=== PATIENT | male | born 1940 | race Caucasian/White ===

== ENCOUNTER 2018-09-27 23:56 | Inpatient (IN) | payer MEDICARE, OTHER ==
[2018-09-28] MEDS ORDERED: Norepinephrine 8 MG in Dextrose 5% in Water 242 ML IVPB PRN ×2 (04:05→06:33)
[2018-09-28 05:10] LABS: Lactic Acid 0.7 mmol/L (0.5-2.2)
[2018-09-28] MEDS ORDERED: Ondansetron PF 4 MG/2 ML Vial IVP PRN (05:27)
[2018-09-28] MEDS ORDERED: Acetaminophen 325 MG TAB PO PRN (05:27)
[2018-09-28] MEDS ORDERED: Ondansetron ODT 4 MG TAB SL PRN (05:27)
[2018-09-28 05:36] VITALS: BMI 34.5
[2018-09-28] MEDS ORDERED: Senokot S 8.6-50 MG TAB PO PRN (06:25)
[2018-09-28] MEDS ORDERED: Vancomycin HCl 1 GM in Sodium Chloride 0.9% 250 ML 250 ML IVPB SCH (06:25)
[2018-09-28] MEDS ORDERED: Guaifenesin DM 100-10/5 ML UDCUP PO PRN (06:25)
[2018-09-28] MEDS ORDERED: Calcium Carbonate 500 MG ChewTAB PO PRN (06:25)
[2018-09-28] MEDS ORDERED: Sodium Chloride 0.9% 1,000 ML IV SCH (06:25)
[2018-09-28] MEDS ORDERED: Norepinephrine 8 MG/0.9% NS 250 ML IVPB SCH (06:25)
[2018-09-28] MEDS ORDERED: Bisacodyl 10 MG SUPP PR PRN (06:25)
[2018-09-28] MEDS ORDERED: HOLD VANCOMYCIN FOR LEVEL >20 FS SCH (06:45)
[2018-09-28] MEDS ORDERED: Vancomycin HCl 1.25 GM in Sodium Chloride 0.9% 250 ML 250 ML IVPB SCH (06:45)
[2018-09-28] MEDS ORDERED: Vancomycin HCl 1 GM in Premix Bag 1 BAG IVPB SCH (06:45)
[2018-09-28] MEDS ORDERED: Vancomycin HCl 1.5 GM in Sodium Chloride 0.9% 250 ML 300 ML IVPB SCH (06:45)
[2018-09-28] MEDS ORDERED: Vancomycin HCl 750 MG in Sodium Chloride 0.9% 250 ML 250 ML IVPB SCH (06:45)
--- NOTE | 2018-09-28 07:07 | HP ---
REASON FOR ADMISSION: Septic shock, right leg cellulitis. HISTORY OF PRESENTING ILLNESS: Please note majority of this history is obtained by talking to the patient's daughter who is here at bedside as the patient is lethargic. He apparently developed fever of 102 and right leg redness. All of this started from yesterday. He has chronic wound at the base of the amputation site of right great toe and second toe. This has been present for the last 6 months or so and is not healing well. The leg area started to become red. He was not feeling good, hence went to [facility], from where he was transferred here. The patient had hemodialysis yesterday for a 4-hour session. He did not have any hypotensive episode during the dialysis. On arrival here, the patient had systolic blood pressures in the 80s. He had nearly 2 L of boluses given at [facility], another half a liter of bolus was given here and the patient was started on norepinephrine drip. Currently has no complaints of chest pain, palpitations, PND, or orthopnea. He is very lethargic, but awakens and responds well to verbal questions. PAST MEDICAL AND SURGICAL HISTORY: History of CABG with four-vessel disease, paroxysmal atrial fibrillation, diabetes mellitus type 2, coronary artery disease, end-stage renal disease, on hemodialysis on Sunday, Sunday, Sunday, hernia repair, right medial foot chronic ulcer, right first and second toe amputations. CURRENT MEDICATIONS: The patient is on; 1. Atorvastatin 40 mg p.o. daily. 2. Gabapentin 200 mg p.o. three times daily. 3. Isosorbide mononitrate 60 mg p.o. q.a.m. 4. Omeprazole 20 mg p.o. q.a.m. 5. Vitamin D3 1000 units p.o. daily. 6. Bumetanide 1 mg p.o. daily. 7. Sodium bicarbonate 650 mg p.o. daily. 8. Coumadin 5 mg p.o. daily. 9. Cardizem CD 120 mg p.o. daily. 10. Sertraline 100 mg p.o. daily. ALLERGIES: TO CLINDAMYCIN AND PENICILLIN. PERSONAL HISTORY: Does not abuse alcohol or drugs. No history of smoking. FAMILY HISTORY: Mother in her 70s. She had a clot in her brain and it is unclear if it is a stroke. Father of massive MS in his 60s. CODE STATUS: Full. 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 Marisela Olvera. REVIEW OF SYSTEMS: CONSTITUTIONAL: Negative for weight loss or gain, ability to conduct usual activities. SKIN: Negative for rash, itching. EYES: Negative for double vision, pain. ENT/MOUTH: Negative for nose bleeding, neck stiffness, pain, tenderness. CARDIOVASCULAR: Negative for palpitations, dyspnea on exertion, orthopnea. RESPIRATORY: Negative for shortness of breath, wheezing, cough, hemoptysis, fever or night sweats. GASTROINTESTINAL: Negative for poor appetite, abdominal pain, heartburn, nausea , vomiting, constipation, or diarrhea. GENITOURINARY: Negative for urgency, frequency, dysuria, nocturia. MUSCULOSKELETAL: Negative for pain, swelling. NEUROLOGIC/PSYCHIATRIC: Negative for anxiety, depression. ALLERGY/IMMUNOLOGIC: Negative for skin rash, bleeding tendency. PHYSICAL EXAMINATION: GENERAL: The patient is a 77-year-old male, who is currently not in any acute distress. VITAL SIGNS: Blood pressure currently 110/70 on norepinephrine drip, pulse 100 per minute, respiratory rate 18 per minute, temperature 99.8 degrees Fahrenheit, saturating 96% on room air. NECK: Supple. No elevated JVD. HEENT: Eyes; extraocular muscles intact, pupils reacting to light. Oral cavity , mucous membranes are dry. No exudates or congestion. CARDIOVASCULAR: S1, S2 heard. Tachycardic. No murmur. RESPIRATORY: Air entry 1+ bilateral. No rales or rhonchi. ABDOMEN: Soft. Bowel sounds heard. No tenderness, rigidity, or guarding. EXTREMITIES: Right leg, there is circumferential erythema and edema. The patient also has a dressing placed on the stump of right 1st and 2nd toe amputation site. There is edema of forefoot as well with erythema. Left lower extremity has no calf tenderness. Peripheral pulses are 1+ bilateral. CENTRAL NERVOUS SYSTEM: The patient is very lethargic, but no focal signs are noted. The patient moves all extremities. He has severe peripheral neuropathy with increased paresthesias in both lower extremities. PSYCHIATRIC: No obvious hallucinations or delusions. LABORATORY DATA: White count of 8, H and H 10 and 32, platelet count 139 with 81% neutrophils, MCV is 91, serum bicarb 33, BUN 21, creatinine 3.7, serum glucose 127. Liver enzymes within normal limits. Albumin is 4.0. Influenza A and B antigens are negative. Chest x-ray done shows cardiomegaly with pulmonary vascular congestion. CLINICAL IMPRESSION AND PLAN: The patient will be admitted to ICU for septic shock with right leg cellulitis. He also has chronic ulcer/wound at the amputation site of the 1st and 2nd toes on the right toe, likely the source of his current cellulitis. He is allergic to penicillin and clindamycin. The patient will be placed on vancomycin, Levaquin, and cefepime. He is currently on norepinephrine drip, but his systolic blood pressure has improved to 116 at present. If this holds up consistently for another 30 minutes, we can start down titrating Levophed. Blood cultures have been obtained in the ER. We will continue Lipitor, Coumadin as before along with Protonix. We will consult Dr. Mera for Pulmonology, Dr. Fischer for Nephrology, and Dr. Vasquez for Infectious Disease. Job ID: [id number] MTDD
[2018-09-28 07:22] LABS: #Eosinphils 0.1 thou/uL (0.0-0.7); #Lymphocytes 0.8 thou/uL (1.20-3.40); #Monocytes 0.6 thou/uL (0.11-0.59); #Neutrophils 5.6 thou/uL (1.40-6.50); %Basophils 0.6 % (0.0-1.0); %Eosinophils 1.6 % (0.0-10.0); %Lymphocytes 10.7 % (21.0-51.0); Hemoglobin 9.7 g/dL (14.0-18.0); Mean Corpuscular HGB CONC 31.2 g/dL (32.0-36.0); Mean Corpuscular Volume 96.2 fL (78.0-98.0); Mean Platelet Volume 8.6 fL (7.4-10.4); Platelet Count 128 thou/uL (130-400); RBC Distribution Width 17.8 % (11.5-14.5); Red Blood Cell (RBC) Count 3.22 mill/uL (4.70-6.10); White Blood Cell (WBC) Count 7.1 thou/uL (4.8-10.8)
[2018-09-28 07:30] LABS: INR-International Normal Ratio 1.9; Prothrombin Time 21.3 SEC (12.0-14.7)
[2018-09-28 07:40] LABS: ALT (SGPT) 9 U/L (8-55); AST (SGOT) 12 U/L (5-34); Albumin 3.6 g/dL (3.4-4.8); Alkaline Phosphatase 94 U/L (40-150); Anion Gap 17 mmol/L (10-20); BUN (Urea Nitrogen) 27 mg/dL (8.4-25.7); Calc. Creatinine Clearance 22 mL/min (70-130); Calcium 8.9 mg/dL (7.8-10.44); Carbon Dioxide 30 mmol/L (23-31); Chloride 95 mmol/L (98-107); Estimated GFR-MDRD 13; Globulin 3.1 g/dL (2.4-3.5); Glucose 107 mg/dL (83-110); Potassium 3.8 mmol/L (3.5-5.1); Protein, Total 6.7 g/dL (5.8-8.1); Sodium 138 mmol/L (136-145)
[2018-09-28] MEDS: Heparin 5,000 UNITS/ML VIAL SC SCH ×2 (08:50→20:20)
[2018-09-28] MEDS: Atorvastatin Calcium 40 MG TAB PO SCH (08:51)
[2018-09-28] MEDS ORDERED: Sodium Bicarbonate Tab 325 MG TAB PO SCH (09:00)
[2018-09-28] MEDS ORDERED: Warfarin Sodium 5 MG TAB PO SCH (09:00)
--- NOTE | 2018-09-28 09:12 | CON ---
DATE OF CONSULTATION: HISTORY OF PRESENT ILLNESS: A 77-year-old obese gentleman from [place], visiting his son here in [place], presented with right lower extremity swelling, pain, and fever. The daughter is in the room. She states that he has had issues with the right leg. He has some dressings. He is a former smoker of 2 packs a day, quit smoking in 90s. Denies history of COPD or asthma. PAST MEDICAL HISTORY: Coronary artery disease; cardiac arrhythmias; atrial fibrillation; end-stage renal disease, on dialysis; hypertension. PAST SURGICAL HISTORY: Including multiple stents, bypass, 2 hernia surgeries, toe amputation, access, bilateral leg surgery. MEDICATIONS: 1. List of medicine is summarized by the patient includes. 2. Coumadin 5. 3. Zoloft 100. 4. Omeprazole 40. 5. Imdur 60. 6. Gabapentin 100 three times a day. 7. Cardizem 120. 8. Bumetanide 1. 9. Atorvastatin 40. 10. He is now on vancomycin, Coumadin, Levaquin adjusted for his renal failure. PHYSICAL EXAMINATION: GENERAL: Awake, alert, responsive. He is off Levophed. VITAL SIGNS: , blood pressure 92/51, pulse 64, respiratory rate 18, . EXTREMITIES: His right leg, there is cellulitis involving his distal leg. He has previous amputation of his toes in his right foot, which looks deformed, distorted, appears to be all chronic. Left leg is unremarkable. CHEST: No wheezing or crackles. CARDIAC: Normal S1 and S2 ABDOMEN: No masses. LABORATORY DATA: White count 7000, H and H 9 and 31, platelet count 128. Creatinine is 4.3. X-ray shows small pleural effusion. Albumin is normal. IMPRESSION: 1. Presumed sepsis. 2. Hypertension. 3. Renal failure, coronary artery bypass grafting, obesity, former smoker. Pulmonary rodriguez, once he is off the Levophed, he can probably be transferred out of the ICU. Await input from Nephrology. May require dialysis. Aggressive PT, supportive care. This is a consultation note, 70 minutes, 50% direct patient care. Job ID: [id number]
--- NOTE | 2018-09-28 11:03 | ULT ---
US Renal Bilateral STANDARD HISTORY: Renal failure, chronic Findings Real-time imaging of the right and left kidneys were performed. The right kidney measures 10.9 cm, t he left kidney 11.4 cm in size. There is a 2.1 cm midpole right renal cyst present. There is no obstruction of either kidney. There is mild cortical thinning of both kidneys. The bladder region claire ears unremarkable. IMPRESSION: 2.1 cm midpole right renal cyst with thin internal septation. No evidence of obstruction of either kidney.
[2018-09-28] MEDS ORDERED: Dextrose 50% Abboject 50 ML SYRINGE IVP PRN (11:19)
[2018-09-28] MEDS ORDERED: Dextrose 5% in Water 1,000 ML IV PRN (11:19)
[2018-09-28] MEDS ORDERED: Insulin Regular 300 UNITS/3 ML VIAL SC PRN (11:19)
--- NOTE | 2018-09-28 12:05 | RAD ---
CHEST 1 VIEW: Date: 09/28/18 HISTORY: Status post internal jugular line placement. COMPARISON: 09/27/18 at 2145 hours. FINDINGS: Interval placement of right-sided internal jugular central venous catheter with distal tip in the pre sumed region of the right atrium. No pneumothorax. Otherwise, no change. IMPRESSION: Right-sided vascular catheter placement as above. No pneumothorax. POS: OFF
--- NOTE | 2018-09-28 13:31 | CON ---
DATE OF CONSULTATION: 09/28/2018 HISTORY OF PRESENT ILLNESS: Mr. Olvera is a 77-year-old white male with ESRD, coronary artery disease, and admitted for a right toe infection/right leg cellulitis. He has been having fever and chills in the last few days. He was also noted to be hypotensive. He was placed in the ICU, given volume repletion as well as pressor support. This morning, he is much improved. Blood pressure is now within normal. The patient is now mentating better. He is currently on IV antibiotics. We are consulted for his maintenance hemodialysis. He has been dialyzed Sunday, Sunday, and Sunday. His next dialysis is Sunday. I have decided to discontinue his IV fluid. REVIEW OF SYSTEMS: No chest pain. Positive for fever. Positive for right leg erythema/pain. No nausea. No vomiting. Appetite and energy level are fair. Status post confusion. No syncopal episode. No productive cough. No dysuria. No urinary frequency. No hematochezia. No melena. No hematemesis. MEDICATIONS: 1. Atorvastatin 40 mg tablet nightly. 2. Normal saline 100 mL/h. 3. Heparin 5000 units subcu b.i.d., status post Levophed. 4. Protonix 40 mg tablet once a day, status post vancomycin. 5. Sodium bicarbonate 650 mg daily. 6. Coumadin as directed. PAST MEDICAL HISTORY: Includes type 2 diabetes mellitus, ESRD from diabetic nephropathy, hyperlipidemia, recently status post right toe infection/leg cellulitis, history of coronary artery disease, and history of paroxysmal atrial fibrillation. PAST SURGICAL HISTORY: Includes status post cardiac cath, status post CABG, status post AV fistula placement, status post hernia repair, and status post right toe amputation. ALLERGIES: CLINDAMYCIN AND PENICILLIN. TRAUMA: None. IMMUNIZATION: Up-to-date. HOSPITALIZATIONS: Please see past medical history. SOCIAL HISTORY: The patient is , lives in [place], [place]. He is visiting in [place]. He has 7 children. 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 Education, 11th grade. Currently not smoking-quit back in 1995. Alcohol, none. Status post blood transfusion. FAMILY HISTORY: No family history of ESRD. PHYSICAL EXAMINATION: VITAL SIGNS: Blood pressure 130/73, heart rate 105, respiratory rate 16, temperature 98.6, and pulse ox 93%. GENERAL: Awake, alert, comfortable, obese, not in distress. SKIN: Adequate turgor. HEENT: He has slightly pale conjunctivae. Anicteric sclerae. NECK: No neck mass. No carotid bruits. No JVD. CHEST: No deformities. LUNGS: Clear breath sounds. No wheezing. No crackles. HEART: Normal sinus rhythm. No murmur. No gallops. No rubs. ABDOMEN: Globular, soft, and nontender. No masses. EXTREMITIES: Trace edema. He does have right foot erythema as well as right leg erythema. NEUROLOGIC: Awake and oriented to 3 spheres. Moving all extremities. No tremors or asterixis. No ataxia. LABORATORY DATA: Laboratories of September 28, 2018; white count 7.1 and hemoglobin 9.7. Sodium 138, potassium 3.8, chloride 95, carbon dioxide 30, BUN 27, creatinine 4.33, glucose 107, AST 12, ALT 9, and cortisol 13.2. ASSESSMENT AND PLAN: 1. Right leg cellulitis, currently on IV antibiotics. Continue supportive care. 2. Hypertension, resolved with volume repletion and pressor support. Currently off pressor supports. My bias, since the patient's blood pressure is now stable and he is mentating well, he is to discontinue the IV fluid. 3. End-stage renal disease, stable. He is on a Sunday, Sunday, and Sunday regular dialysis. If he is still in the hospital on Sunday, we will dialyze him. After his right cellulitis resolved, he will be flying back to [place], [place]. Overall, agree with current management. Job ID: [id number]
[2018-09-28] MEDS: Warfarin Sodium 5 MG TAB PO SCH (17:12)
--- NOTE | 2018-09-28 17:16 | PDOC.PN ---
- Subjective Encounter Start Date: 09/28/18 Encounter Start Time: 11:00 Subjective: pt up in bed no complains - Objective Resuscitation Status - Order Detail: 09/28/18 06:14 Resuscitation Status Routine Resuscitation Status: FULL: Full Resuscitation Vital Signs & Weight: Vital Signs (12 hours) Temp Pulse Resp BP Pulse Ox 09/28/18 16:49 98.7 F 109 H 20 131/58 L 96 09/28/18 12:00 93 L 09/28/18 11:30 98.6 F 105 H 16 130/73 93 L 09/28/18 08:00 99.4 F 98 09/28/18 06:00 98.7 F 09/28/18 05:40 96 09/28/18 05:23 98.7 F Weight Admit Weight 240 lb 15.444 oz Weight 240 lb 15.444 oz Most Recent Monitor Data Heart Rate from ECG 108 NIBP 104/63 NIBP BP-Mean 76 Respiration from ECG 24 SpO2 100 I&O: 09/27/18 09/28/18 09/29/18 06:59 06:59 06:59 Intake Total 613 Output Total 0 0 Balance 0 613 Result Diagrams: 09/28/18 06:59 09/28/18 06:25 Additional Labs: Accuchecks 09/28/18 09/28/18 16:16 11:57 POC Glucose 161 H 185 H Phys Exam - Physical Examination Neck: no nodes, no JVD, supple, full ROM Respiratory: no wheezing, no rales, no rhonchi, wheezing present, clear to auscultation bilateral Cardiovascular: RRR, no significant murmur, no rub, gallop, irregular Gastrointestinal: soft, non-tender, no distention, positive bowel sounds Dx/Plan (1) Sepsis Code(s): A41.9 - SEPSIS, UNSPECIFIED ORGANISM Status: Acute (2) Cellulitis Code(s): L03.90 - CELLULITIS, UNSPECIFIED Status: Acute (3) Osteomyelitis Code(s): M86.9 - OSTEOMYELITIS, UNSPECIFIED Status: Acute (4) Diabetes Code(s): E11.9 - TYPE 2 DIABETES MELLITUS WITHOUT COMPLICATIONS Status: Acute - Plan pt off pressors, will continue abx for now. -: pt's daughter states in apr had amputation of 1 and 2nd toe of right -: foot. wound care to seept -: possible MRi or right foot * . Review of Systems - Review of Systems Respiratory: negative: Cough, Dry, Shortness of Breath, Hemoptysis, SOB with Excertion, Pleuritic Pain, Sputum, Wheezing Cardiovascular: negative: chest pain, palpitations, orthopnea, paroxysmal nocturnal dyspnea, edema, light headedness, other Gastrointestinal: negative: Nausea, Vomiting, Abdominal Pain, Diarrhea, Constipation, Melena, Hematochezia, Other - Medications/Allergies Allergies/Adverse Reactions: Allergies Allergy/AdvReac Type Severity Reaction Status Date / Time clindamycin Allergy Verified 09/28/18 05:31 Penicillins Allergy Verified 09/28/18 05:31 Medications: Current Medications Acetaminophen (Tylenol) 650 mg PO Q4H PRN PRN Reason: Headache/Fever/Mild Pain (1-3) Atorvastatin Calcium (Lipitor) 40 mg PO DAILY REPLACED BY [facility] Last Admin: 09/28/18 08:51 Dose: 40 mg Bisacodyl (Dulcolax) 10 mg MO DAILYPRN PRN PRN Reason: Constipation Calcium Carbonate (Tums) 1,000 mg PO Q4H PRN PRN Reason: Heartburn or Indigestion Dextrose/Water (Dextrose 50%) 25 gm IVP PRN PRN PRN Reason: HYPOGLYCEMIA PROTOCOL Glucagon (Glucagon) 1 mg IM PRN PRN PRN Reason: HYPOGLYCEMIA PROTOCOL Guaifenesin/Dextromethorphan (Robitussin Dm) 15 ml PO Q4H PRN PRN Reason: Cough Heparin Sodium (Porcine) (Heparin) 5,000 units SC BID REPLACED BY [facility] Last Admin: 09/28/18 08:50 Dose: 5,000 units Levofloxacin 250 mg/ Device 50 mls @ 100 mls/hr IVPB Q24HR REPLACED BY [facility] Last Admin: 09/28/18 07:44 Dose: 50 mls Norepinephrine Bitartrate 8 mg (/ Dextrose/Water) 250 mls @ 0 mls/hr IVPB INF PRN; Protocol PRN Reason: TO MAINTAIN MAP > 65 Vancomycin HCl 1.5 gm/ Sodium (Chloride) 300 mls @ 200 mls/hr IVPB WILLCALL REPLACED BY [facility] Vancomycin HCl 1.25 gm/ Sodium (Chloride) 250 mls @ 166.667 mls/hr IVPB WILLCALL REPLACED BY [facility] Vancomycin HCl 1 gm/ Device 200 mls @ 200 mls/hr IVPB WILLCALL REPLACED BY [facility] Vancomycin HCl 750 mg/ Sodium (Chloride) 250 mls @ 250 mls/hr IVPB WILLCALL REPLACED BY [facility] Dextrose/Water (D5w) 1,000 mls @ 0 mls/hr IV INF PRN PRN Reason: HYPOGLYCEMIA PROTOCOL Insulin Human Regular (Humulin R) 0 units SC .MILD SLIDING PRN; Protocol PRN Reason: MILD SLIDING SCALE Hold Vancomycin For (Level >20) 0 each FS .AT DIALYSIS REPLACED BY [facility] Pantoprazole Sodium (Protonix) 40 mg PO DAILY REPLACED BY [facility] Last Admin: 09/28/18 08:51 Dose: 40 mg Senna/Docusate Sodium (Senokot S) 2 tab PO BID PRN PRN Reason: Constipation Sertraline HCl (Zoloft) 100 mg PO DAILY REPLACED BY [facility] Last Admin: 09/28/18 08:51 Dose: 100 mg Warfarin Sodium (Coumadin) 5 mg PO 1700 REPLACED BY [facility] Last Admin: 09/28/18 17:12 Dose: 5 mg
[2018-09-28] MEDS: Acetaminophen 325 MG TAB PO PRN (20:19)
[2018-09-28] MEDS ORDERED: Prevnar 13-Val Conj/PF 0.5 ML SYRINGE IM ONE (21:00)
[2018-09-29 06:22] LABS: #Eosinphils 0.1 thou/uL (0.0-0.7); #Lymphocytes 0.9 thou/uL (1.20-3.40); #Monocytes 0.4 thou/uL (0.11-0.59); %Basophils 0.2 % (0.0-1.0); %Eosinophils 2.4 % (0.0-10.0); %Lymphocytes 15.7 % (21.0-51.0); %Monocytes 8.2 % (0.0-10.0); %Neutrophils 73.5 % (42.0-75.0); Hemoglobin 8.9 g/dL (14.0-18.0); Mean Corpuscular Hemoglobin 30.4 pg (27.0-31.0); Mean Corpuscular Volume 95.1 fL (78.0-98.0); Mean Platelet Volume 8.6 fL (7.4-10.4); Platelet Count 113 thou/uL (130-400); RBC Distribution Width 17.3 % (11.5-14.5); Red Blood Cell (RBC) Count 2.94 mill/uL (4.70-6.10); White Blood Cell (WBC) Count 5.4 thou/uL (4.8-10.8)
[2018-09-29 06:37] LABS: Anion Gap 17 mmol/L (10-20); BUN (Urea Nitrogen) 42 mg/dL (8.4-25.7); Calc. Creatinine Clearance 17 mL/min (70-130); Calcium 9.4 mg/dL (7.8-10.44); Carbon Dioxide 28 mmol/L (23-31); Chloride 94 mmol/L (98-107); Estimated GFR-MDRD 10; Glucose 129 mg/dL (83-110); Potassium 3.8 mmol/L (3.5-5.1); Sodium 135 mmol/L (136-145)
[2018-09-29] MEDS: Atorvastatin Calcium 40 MG TAB PO SCH (08:12)
[2018-09-29] MEDS: Heparin 5,000 UNITS/ML VIAL SC SCH ×2 (08:14→20:14)
[2018-09-29 10:34] LABS: HBSAB Concentration 1.96 mIU/mL; HBSAg Index 0.23 S/CO (0-0.99); Hep B Core Total Ab Non-Reactive (NonReactive); Hep B Core Total Index 0.07 S/CO (0-0.79); Hep B Surf AB Non-Reactive (NonReactive); Hep B Surf Ag Non-Reactive S/CO (NonReactive); Hep C IgG Ab Non-Reactive (NonReactive); Hep C Index 0.12 S/CO (0-0.79)
[2018-09-29] MEDS ORDERED: Epoetin (ESRD) 20,000 UNITS/ML SC SCH (11:00)
--- NOTE | 2018-09-29 11:09 | PRG ---
DATE OF SERVICE: 09/29/2018 SUBJECTIVE: This morning, is in no distress. OBJECTIVE: VITAL SIGNS: Saturations are 95% on room air, pulse 105, temperature 98, and blood pressure . CHEST: Decreased breath sounds. No wheezing. CARDIAC: Normal S1, S2. No gallops. ABDOMEN: Soft, massive. LABORATORY DATA: Creatinine 5.73. White count 5000, H and H are 8 and 27. IMPRESSION: 1. Chronic renal failure. 2. Diabetes. 3. Cellulitis. 4. Infected toe. PLAN: Pulmonary rodriguez, continue antibiotics as per Infectious Disease. Pulmonary will follow at a distance. Call, if needed. Job ID: [id number]
[2018-09-29] MEDS ORDERED: EPOETIN ALFA-EPBX (ESRD) 4,000 UNIT/ML VIAL SC SCH (11:15)
--- NOTE | 2018-09-29 11:23 | PRG ---
DATE OF SERVICE: 09/29/2018 SUBJECTIVE: Mr. Olvera is a 77-year-old white male with ESRD from presumed diabetic nephropathy. He was admitted due to infected right foot/right leg. He has a cellulitis. He was empirically given with volume repletion as well as IV antibiotics due to the low blood pressure. This morning, he voices no new complaints. He denies any chest pain or shortness of breath. I have discontinued his IV fluids yesterday. OBJECTIVE: VITAL SIGNS: Blood pressure 119/67, heart rate 105, respiratory rate 20, temperature 98, and pulse ox 95%. GENERAL: Noted to be awake, supine, comfortable, obese, not in distress. SKIN: Adequate turgor. HEENT: Slightly pale conjunctivae. Anicteric sclerae. NECK: No neck mass. No carotid bruits. No JVD. CHEST: No deformities. LUNGS: Clear breath sounds. No wheezing. No crackles. HEART: Normal sinus rhythm. No murmur. No gallops. No rubs. ABDOMEN: Globular, soft, nontender. No masses. EXTREMITIES: No edema. No deformities. MEDICATIONS: Medications of September 29, 2018, were reviewed. LABORATORY DATA: Laboratories of September 29, 2018, white count 5.4, hemoglobin 8.9. Sodium 135, potassium 3.8, chloride 94, carbon dioxide 28, BUN 42, creatinine 5.73, glucose 129, calcium 9.4. White count is 5.4, hemoglobin 8.9. ASSESSMENT AND PLAN: 1. End-stage renal disease stable. No indication for any emergent hemodialysis. I have scheduled him for dialysis tomorrow. 2. Anemia. Resume Epogen 7500 units subcu q.week. 3. Right leg cellulitis/foot infection-on IV antibiotics, clinically improving. The IV fluid was discontinued yesterday. We will recheck basic metabolic profile, CBC in a.m., if the patient is still here. 4. From a renal point of view, he could be discharged and follow up with his outpatient dialysis in [place], [place]. Job ID: [id number]
[2018-09-29] MEDS ORDERED: Nystatin Powder 15 GM BOT TOP PRN (13:19)
--- NOTE | 2018-09-29 15:59 | MRI ---
Exam: Right foot MRI without IV contrast: HISTORY: Right foot cellulitis, prior amputation, chronic wound Amputation changes noted of the first and second toes at the level of the distal metatarsals. Abnorma l T2 hyperintense T1 hypointense changes of the most distal aspect of the first metatarsal at the amputation site and extending approximately 0.5 cm cranially evidence for osteomyelitis. Medial to th e distal first amputated metatarsal adjacent to the skin wound is an irregular shaped collection measuring 0.5 x 1.3 x 1.2 cm in size probably a small abscess which extends from the open wound to th e distal amputated first metatarsal. Diffuse soft tissue swelling and edema involving the forefoot region somewhat circumferentially. Increased T2 signal in the intrinsic muscles of the foot which can be seen in diabetes. IMPRESSION: Focal area of osteomyelitis involving the distal amputated first metatarsal with a small irregular fl uid collection between the distal metatarsal and the skin wound evidence for small abscess. Amputation of the distal second metatarsal. Diffuse subcutaneous edema and fat stranding. Nonspecific T2 hyperintensity of the intrinsic muscles of the foot.
[2018-09-29] MEDS: Warfarin Sodium 5 MG TAB PO SCH (17:23)
[2018-09-29] MEDS: Acetaminophen 325 MG TAB PO PRN ×2 (19:39→23:38)
--- NOTE | 2018-09-30 04:48 | PDOC.EVN ---
Event Note - Event Note Event Note: Informed by RN that family frustrated due to not having results of MRI. Patient seen, I have provided MRI results as well as a report. MRI indicates focal area of osteomyelitis. Patient awaiting review by Dr. Vasquez. Currently on abx. Patient very appreciate and grateful for care he has been receiving. Daughter insisting no procedures to be done here and she wants to take him back to [place] to continue treatment. I advised I am not able to discharge, as he does require IV abx and awaiting further recommendations by ID and primary team. Family aware would have to sign out AMA if planning to leave tonight. They have opted to stay with plans to go home tomorrow. Patient without any complaints.
[2018-09-30 05:58] LABS: #Eosinphils 0.1 thou/uL (0.0-0.7); #Lymphocytes 0.7 thou/uL (1.20-3.40); #Monocytes 0.3 thou/uL (0.11-0.59); #Neutrophils 3.2 thou/uL (1.40-6.50); %Eosinophils 2.2 % (0.0-10.0); %Lymphocytes 17.2 % (21.0-51.0); %Monocytes 6.5 % (0.0-10.0); Hemoglobin 8.7 g/dL (14.0-18.0); Mean Corpuscular HGB CONC 31.8 g/dL (32.0-36.0); Mean Corpuscular Volume 94.1 fL (78.0-98.0); Mean Platelet Volume 8.5 fL (7.4-10.4); Platelet Count 111 thou/uL (130-400); RBC Distribution Width 17.3 % (11.5-14.5); White Blood Cell (WBC) Count 4.3 thou/uL (4.8-10.8)
[2018-09-30 06:06] LABS: INR-International Normal Ratio 1.5; Prothrombin Time 18.3 SEC (12.0-14.7)
[2018-09-30 06:19] LABS: Anion Gap 16 mmol/L (10-20); BUN (Urea Nitrogen) 55 mg/dL (8.4-25.7); Calc. Creatinine Clearance 14 mL/min (70-130); Calcium 8.8 mg/dL (7.8-10.44); Carbon Dioxide 27 mmol/L (23-31); Chloride 93 mmol/L (98-107); Estimated GFR-MDRD 8; Glucose 136 mg/dL (83-110); Potassium 3.9 mmol/L (3.5-5.1); Sodium 132 mmol/L (136-145)
[2018-09-30] MEDS ORDERED: Clopidogrel Bisulfate 75 MG TAB ONE (07:46)
[2018-09-30 09:01] LABS: Vancomycin, Random 7.8 ug/mL (See Comment)
[2018-09-30] MEDS ORDERED: Vancomycin HCl 1.25 GM in Sodium Chloride 0.9% 250 ML 250 ML IVPB SCH (09:30)
--- NOTE | 2018-09-30 09:59 | PDOC.PN ---
- Subjective Encounter Start Date: 09/29/18 Encounter Start Time: 10:15 Subjective: pt up in bed no complains - Objective Resuscitation Status - Order Detail: 09/28/18 06:14 Resuscitation Status Routine Resuscitation Status: FULL: Full Resuscitation Vital Signs & Weight: Vital Signs (12 hours) Temp Pulse Resp BP Pulse Ox 09/30/18 08:25 98.9 F 105 H 18 115/65 96 09/30/18 04:00 97.9 F 95 18 134/63 100 Weight Admit Weight 240 lb 15.444 oz Weight 240 lb 15.444 oz Most Recent Monitor Data Heart Rate from ECG 108 NIBP 104/63 NIBP BP-Mean 76 Respiration from ECG 24 SpO2 100 I&O: 09/29/18 09/30/18 10/01/18 06:59 06:59 06:59 Intake Total 2233 1320 Output Total 0 Balance 2233 1320 Result Diagrams: 09/30/18 05:40 09/30/18 05:40 Additional Labs: Accuchecks 09/30/18 09/29/18 09/29/18 05:38 19:34 16:46 POC Glucose 141 H 188 H 148 H 09/29/18 11:41 POC Glucose 215 H Phys Exam - Physical Examination Neck: no nodes, no JVD, supple, full ROM Respiratory: no wheezing, no rales, no rhonchi, wheezing present, clear to auscultation bilateral Cardiovascular: RRR, no significant murmur, no rub, gallop, irregular Gastrointestinal: soft, non-tender, no distention, positive bowel sounds right foot has small opening to his medial aspect of his foot and to the lateral part his skin is bruised Dx/Plan (1) Sepsis Code(s): A41.9 - SEPSIS, UNSPECIFIED ORGANISM Status: Acute (2) Cellulitis Code(s): L03.90 - CELLULITIS, UNSPECIFIED Status: Acute (3) Osteomyelitis Code(s): M86.9 - OSTEOMYELITIS, UNSPECIFIED Status: Acute (4) Diabetes Code(s): E11.9 - TYPE 2 DIABETES MELLITUS WITHOUT COMPLICATIONS Status: Acute - Plan plan discussed with family at bedside -: will order a MRI of the foot -: will continue abx for now * . Review of Systems - Review of Systems Respiratory: negative: Cough, Dry, Shortness of Breath, Hemoptysis, SOB with Excertion, Pleuritic Pain, Sputum, Wheezing Gastrointestinal: negative: Nausea, Vomiting, Abdominal Pain, Diarrhea, Constipation, Melena, Hematochezia, Other - Medications/Allergies Allergies/Adverse Reactions: Allergies Allergy/AdvReac Type Severity Reaction Status Date / Time clindamycin Allergy Verified 09/28/18 05:31 Penicillins Allergy Verified 09/28/18 05:31 Medications: Current Medications Acetaminophen (Tylenol) 650 mg PO Q4H PRN PRN Reason: Headache/Fever/Mild Pain (1-3) Last Admin: 09/29/18 23:38 Dose: 650 mg Atorvastatin Calcium (Lipitor) 40 mg PO DAILY [facility] Last Admin: 09/29/18 08:12 Dose: 40 mg Bisacodyl (Dulcolax) 10 mg [place] DAILYPRN PRN PRN Reason: Constipation Calcium Carbonate (Tums) 1,000 mg PO Q4H PRN PRN Reason: Heartburn or Indigestion Dextrose/Water (Dextrose 50%) 25 gm IVP PRN PRN PRN Reason: HYPOGLYCEMIA PROTOCOL Epoetin Richard-epbx (Retacrit) 7,500 unit SC Q7D [facility] Last Admin: 09/29/18 11:42 Dose: 7,500 unit Glucagon (Glucagon) 1 mg IM PRN PRN PRN Reason: HYPOGLYCEMIA PROTOCOL Guaifenesin/Dextromethorphan (Robitussin Dm) 15 ml PO Q4H PRN PRN Reason: Cough Heparin Sodium (Porcine) (Heparin) 5,000 units SC BID [facility] Last Admin: 09/29/18 20:14 Dose: 5,000 units Levofloxacin 250 mg/ Device 50 mls @ 100 mls/hr IVPB Q24HR [facility] Last Admin: 09/29/18 08:12 Dose: 50 mls Norepinephrine Bitartrate 8 mg (/ Dextrose/Water) 250 mls @ 0 mls/hr IVPB INF PRN; Protocol PRN Reason: TO MAINTAIN MAP > 65 Vancomycin HCl 1.5 gm/ Sodium (Chloride) 300 mls @ 200 mls/hr IVPB WILLCALL [facility] Vancomycin HCl 1.25 gm/ Sodium (Chloride) 250 mls @ 166.667 mls/hr IVPB WILLCALL [facility] Vancomycin HCl 1 gm/ Device 200 mls @ 200 mls/hr IVPB WILLCALL [facility] Vancomycin HCl 750 mg/ Sodium (Chloride) 250 mls @ 250 mls/hr IVPB WILLCALL [facility] Dextrose/Water (D5w) 1,000 mls @ 0 mls/hr IV INF PRN PRN Reason: HYPOGLYCEMIA PROTOCOL Vancomycin HCl 1.25 gm/ Sodium (Chloride) 250 mls @ 166.667 mls/hr IVPB NOW [facility] Stop: 09/30/18 11:30 Insulin Human Regular (Humulin R) 0 units SC .MILD SLIDING PRN; Protocol PRN Reason: MILD SLIDING SCALE Last Admin: 09/29/18 11:44 Dose: 3 unit Miscellaneous Medication (Pharmacy To Dose) 1 each IVPB PRN PRN PRN Reason: Pharmacy to dose Hold Vancomycin For (Level >20) 0 each FS .AT DIALYSIS [facility] Nystatin (Mycostatin Powder) 1 gm TOP BID PRN PRN Reason: Topical Irritations Last Admin: 09/29/18 15:05 Dose: 1 applic Pantoprazole Sodium (Protonix) 40 mg PO DAILY [facility] Last Admin: 09/29/18 08:12 Dose: 40 mg Senna/Docusate Sodium (Senokot S) 2 tab PO BID PRN PRN Reason: Constipation Sertraline HCl (Zoloft) 100 mg PO DAILY [facility] Last Admin: 09/29/18 08:12 Dose: 100 mg Sodium Chloride (Flush - Normal Saline) 10 ml IVF Q12HR [facility] Last Admin: 09/29/18 20:16 Dose: 10 ml Sodium Chloride (Flush - Normal Saline) 10 ml IVF PRN PRN PRN Reason: Saline Flush Warfarin Sodium (Coumadin) 5 mg PO 1700 [facility] Last Admin: 09/29/18 17:23 Dose: 5 mg
--- NOTE | 2018-09-30 10:00 | PRG ---
DATE OF SERVICE: 09/30/2018 SUBJECTIVE: Mr. Olvera is a 77-year-old white male with ESRD, was admitted for right foot infection. Currently, on IV antibiotics. He is currently undergoing hemodialysis. We are doing a 4-hour dialysis treatment with fluid removal as tolerated. OBJECTIVE: VITAL SIGNS: Blood pressure 115/65, heart rate 105, respiratory rate 18, temperature 98.9, and pulse ox 96%. GENERAL: Awake, alert, comfortable, not in distress. SKIN: Adequate turgor. HEENT: He has slightly pale conjunctivae. Anicteric sclerae. No neck mass. No carotid bruits. No JVD. CHEST: No deformities. LUNGS: Clear breath sounds. No wheezing. No crackles. HEART: Normal sinus rhythm. No murmur. No gallops. No rubs. ABDOMEN: Globular, soft, nontender. No masses. EXTREMITIES: No edema. Positive for right leg erythema. MEDICATIONS: Medication of September 30, 2018, was reviewed. LABORATORY DATA: Laboratories of September 30, 2018, white count 4.3, hemoglobin 8.7. Sodium 132, potassium 3.9, chloride 93, carbon dioxide 27, BUN 55, creatinine 6.66, glucose 136, calcium 8.8. Hemoglobin 8.7. ASSESSMENT AND PLAN: 1. End-stage renal disease, stable. We will continue current Sunday, Sunday, and Sunday hemodialysis regimen. Fluid removal as tolerated. 2. Right leg cellulitis, on IV antibiotics. 3. Anemia. Epogen has been initiated with this patient at 7500 units subcu every week. Job ID: [id number]
[2018-09-30] MEDS: Heparin 5,000 UNITS/ML VIAL SC SCH (10:19)
--- NOTE | 2018-09-30 11:50 | CON ---
DATE OF CONSULTATION: 09/28/2018 REASON FOR CONSULTATION: Cellulitis of the right lower extremity. HISTORY OF PRESENT ILLNESS: A 77-year-old patient who has a history of coronary artery disease, type 2 diabetes; end-stage renal disease, on hemodialysis through a left upper extremity AV fistula and prior right first and second toe amputations. The patient on arrival was lethargic and apparently had developed fever and erythema in the right lower extremity. This was following a recent amputation of the right great and second toes. This was carried out at [facility]. The area has progressively displayed healing, although there is still an area of quite shallow wound. He was transferred to [facility] and then over to [facility]. His last hemodialysis was before admission. Initial systolic blood pressure was 80. He was given IV fluids and norepinephrine. Initial values of the vital signs; BP 110/70, on norepinephrine; pulse was 100, respiratory rate was 18, temperature 99.8, O2 saturation 96. His lungs were clear. Heart exam showed tachycardia, but no murmurs. Abdomen was not tender. There is erythema and edema in the right leg and there was a stump of the first and second toe amputation sites with flat shallow wound noted. Currently, Mr. Olvera is feeling better. He denies any headaches. No change in visual symptoms, sore throat, odynophagia, or dysphagia. No cough, sputum production, or chest pain. No abdominal pain. No diarrhea. No genitourinary symptoms. Not much pain in the right foot. PAST MEDICAL HISTORY: Coronary artery disease with prior bypass graft surgery, type 2 diabetes. End-stage renal disease, on hemodialysis, removal of the fistula in the left upper extremity. 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 MEDICATIONS: 1. Atorvastatin. 2. Gabapentin. 3. Omeprazole. 4. Bumex. 5. Coumadin. 6. Cardizem. 7. Zoloft. He is also on levofloxacin and vancomycin ALLERGIES: CLINDAMYCIN AND PENICILLIN. SOCIAL HISTORY: Never smoker. FAMILY HISTORY: CVA and coronary artery disease. PHYSICAL EXAMINATION: VITAL SIGNS: T-max 99.4, blood pressure 110/66, pulse 107, respirations 18, O2 saturation 95. SKIN: Shows the medial right foot with shallow area of elliptical wound with 100% granulation. Mild erythema surrounding the area and moderate tenderness to palpation. There is erythema extending to the distal right leg medial aspect in a circumferential distribution. HEENT: No lymphadenopathy. Ocular movements are conjugate. Oral cavity with numerous missing teeth. Oral mucosa is normal. NECK: Supple. No jugular vein distention or carotid bruits. LUNGS: Clear. HEART: S1 and S2. Regular rate. No S3 or S4. ABDOMEN: Soft. Not distended or tender. No ascites. No bladder distention. EXTREMITIES: Pulses are diminished in lower extremities. I could not feel dorsalis pedis. NEUROLOGICAL: His strength in all lower extremities is preserved. Cognitive function appears to be intact except for some element of hearing impairment. LABORATORY DATA: White cell count 7.1, hemoglobin 9.7, platelets 128, 79% neutrophils. Sodium 138, creatinine 4.33. Other elements in the chemistry panel are normal. No microbiology information at this point in time. Chest x-ray with right-sided vascular catheter. Renal ultrasound, renal cyst, but no hydronephrosis. ASSESSMENT AND PLAN: Type 2 diabetes, coronary artery disease, neuropathy with recent right first and second ray amputations, now what appears to be cellulitis. We will repeat the x-ray to evaluate the sites and may need an MRI. Continue the current antimicrobial therapy. Eventual transition to oral antimicrobial therapy probably with some cephalosporin as long as the imaging studies do not demonstrate progression of the infection. Job ID: [id number] [facility]
[2018-09-30] MEDS: Atorvastatin Calcium 40 MG TAB PO SCH (13:36)
[2018-09-30 14:24] VITALS: BP 127/63; TEMP 98.5
--- NOTE | 2018-10-01 12:29 | DIS ---
DATE OF ADMISSION: 09/28/2018 DATE OF DISCHARGE: 09/30/2018 DISCHARGE DIAGNOSES: As of the following; 1. Sepsis. 2. Cellulitis of the right lower extremity. 3. Osteomyelitis, possible. 4. Diabetes. HOSPITAL COURSE: The patient is a 77-year-old male, who is from out of [facility], who presents to the hospital with complaints of right lower extremity pain and swelling. The patient on arrival was found to be hypotensive requiring an ICU admission and was also in septic shock. He was put initially on Levophed to sustain his blood pressures. The patient has an allergy to penicillin and clindamycin and he was put on vancomycin and Levaquin. The patient improved. His Levophed was titrated down. He was resuscitated appropriately and then was transferred to out of the ICU to the medical floor. The patient and family were very adamant about taking the patient back to [place] since all his care has been always provided in [place]. The patient has known history of peripheral vascular disease to his right and left lower extremity. He has also had a first and second metatarsal amputation. The patient does have a wound on his right foot that has been an issue with healing and keeps reopening. The patient at this time did undergo an MRI of the right lower extremity, which indicated focal area of osteomyelitis involving the distal amputated first metatarsal and small irregular fluid collection between the distal metatarsal and the skin wound. Evidence of small abscess. Amputation of the distal second metatarsal, diffuse subcutaneous edema and fat stranding. This was discussed with the patient's daughter and the patient and also Infectious Disease did come by to see the patient. I did recommend for the patient to stay in the hospital, get incision and drainage to get cultures and at the meantime, continue the antibiotics and taper the antibiotics based on the cultures. However, the family was very adamant to taking the patient home to [place] and provide the care, since all his physicians are in [place], which is also appropriate. I did discuss with the patient and the patient's daughter the risks of taking the patient off the antibiotics, especially since when he came in, he was very ill and was in septic shock. The patient's daughter understands. He did not receive a dose of vancomycin since the patient's daughter wanted to stop the dialysis treatment an hour early due to catching of the flight. Again, this was discussed with the patient's daughter. The risks of not getting appropriate antibiotics and also including . She understood and I also discussed delaying in care for this patient and regarding and also possible amputation with further delay. The patient's daughter understood this and so did the patient. The patient will be discharged and he has a flight today at 5:00 p.m. He has been provided with Levaquin, however, we did not receive a dose of vancomycin. PHYSICAL EXAMINATION: VITAL SIGNS: As of the following; temperature of 98.5, pulse 105, respiratory rate 16, oxygen saturation 100% on room air, and blood pressure 127/63. GENERAL: He is awake, alert, and oriented x3. Does not appear in any distress. CARDIOVASCULAR: S1 and S2 present. No murmurs, rubs, or gallops. ABDOMEN: Soft and nontender. Bowel sounds are present x2. EXTREMITIES: No edema. He will be discharged home and I have advised the patient and the family to take him directly to the emergency department and I have provided the patient with a disc off his MRI and also reports our H and Ps and our consultants H and Ps. MEDICATIONS: As of the following; 1. Atorvastatin 40 mg daily. 2. Bumetanide 1 mg p.o. daily. 3. Vitamin D3 of 1000 units p.o. daily. 4. Cardizem 120 mg p.o. daily. 5. Isosorbide 60 mg daily. 6. Gabapentin 100 mg t.i.d. 7. Omeprazole 40 mg daily. 8. Sertraline 100 mg daily. 9. Sodium bicarbonate 650 mg daily. 10. Warfarin 5 mg daily. 11. Insulin as needed. 12. Enalapril 10 mg daily. Again, the patient will be discharged. This is per family's recommendations. I did discuss the risks and benefits, however, more risks involving loss of the right foot. The patient and family are agreeable to the risks and are wanting to take the patient back to [place]. I spent more than 35 minutes discussing and calling consultants regarding this. Job ID: [id number]
== END 2018-09-30 14:12 | disposition home or self-care (01) | DRG 871 ==
LOC: ERS 23:56 → CCU 09-28 05:25 → T4-B 09-28 11:33
PROVIDERS: ADMIT Internal Medicine; ATTEND Internal Medicine
PROC: 5A1D70Z Performance of Urinary Filtration, Intermittent, Less than 6 Hours Per Day (ICD-10-PCS; principal; 2018-09-30)
DX: A41.9 Sepsis, unspecified organism (principal); N18.6 End stage renal disease; R65.21 Severe sepsis with septic shock; I12.0 Hypertensive chronic kidney disease with stage 5 chronic kidney disease or end stage renal disease; L03.115 Cellulitis of right lower limb; M86.9 Osteomyelitis, unspecified; I25.10 Atherosclerotic heart disease of native coronary artery without angina pectoris; I48.0 Paroxysmal atrial fibrillation; E11.22 Type 2 diabetes mellitus with diabetic chronic kidney disease; E66.9 Obesity, unspecified; E11.40 Type 2 diabetes mellitus with diabetic neuropathy, unspecified; E11.69 Type 2 diabetes mellitus with other specified complication; D64.9 Anemia, unspecified; E11.621 Type 2 diabetes mellitus with foot ulcer; L97.519 Non-pressure chronic ulcer of other part of right foot with unspecified severity; Z95.1 Presence of aortocoronary bypass graft; Z99.2 Dependence on renal dialysis; Z79.899 Other long term (current) drug therapy; Z88.6 Allergy status to analgesic agent; Z88.0 Allergy status to penicillin; Z87.891 Personal history of nicotine dependence; Z68.34 Body mass index [BMI] 34.0-34.9, adult; Z88.1 Allergy status to other antibiotic agents
CPT/HCPCS: 36415; 36416; 36556; 71045; 76770; 80048; 80053; 80202; 82533; 83605; 85025; 85610; 86704; 86706; 86803; 87040; 87340; 96361; 96365; J1644; J1815; J1956; J3370; J7050; J7070; Q5105